=== PATIENT | male | born 1970 | race Caucasian/White ===

== ENCOUNTER 2020-03-11 12:43 | Emergency (ER) | payer OTHER, SELFPAY ==
--- NOTE | ~2020-03-11 | XR_ITS ---
XR shoulder RT min 2V DATE: 03/11/2020 13:03 INDICATION: Injury, right shoulder pain TECHNIQUE: 4 views COMPARISON: None FINDINGS: No fracture or dislocation, periosteal reaction or bone destruction. No abnormal soft tis erick calcification. Right cervical rib. IMPRESSION: No significant abnormality of right shoulder Right cervical rib Reviewed, dictated and finalized at location A.
[2020-03-11 12:45] VITALS: BP 137/82; PULSE 84; RESP 20; TEMP 36.7; O2SAT 99
--- NOTE | 2020-03-11 13:12 | ED.UPPEXIN ---
HPI - Extremity Injury (Upper) General Chief Complaint: Extremity Injury, Upper Stated Complaint: R shoulder pain Time Seen by Provider: 03/11/20 13:11 Source: patient Mode of arrival: ambulatory Limitations: no limitations History of Present Illness HPI narrative: Patient is a previously healthy 49-year-old gentleman who presents for evaluation of right shoulder pain. Pain is described as sharp in nature only with movement. Patient denies any radiation of the pain into his back, chest or down his right arm. Reports pain at the front portion of the top shoulder. Patient states pain began acutely yesterday when he was trying to help a friend move a piece of heavy furniture and he felt a popping sensation in his shoulder. No bulging noted. No numbness or weakness. Patient reports pain is mild. Patient still has good range of motion. He is not taking anything for pain. Patient is right-hand dominant. Review of Systems Review of Systems: Narrative: CONSTITUTIONAL: Denies fever CARDIOVASCULAR: Denies chest pain RESPIRATORY: Denies cough GASTROINTESTINAL: Denies abdominal pain SKIN: Denies rash MUSCULOSKELETAL: Denies back pain, reports mild right shoulder pain NEUROLOGIC: Denies headache PMFSH Past Medical History Medical History Orbital fracture Surgical History Surgical History H/O eye surgery Social History Social History (Updated 03/11/20 @ 13:29 by Yara Mederos MD) Smoking status: Never smoker Alcohol intake: current Alcohol use details: Social Substance use: never Gender identity (if verbalized by the patient): Male Exam Narrative: Exam Narrative: GENERAL: Awake, alert, conversant HEAD: Normocephalic, atraumatic. EYES: PERRLA and EOMI. ENT: Nares clear, no rhinorrhea or epistaxis. Mucous membranes moist. NECK: Supple. CHEST: No respiratory distress, breathing even and non labored HEART: Regular rate, sinus rhythm ABDOMEN:Non distended, non tender EXTREMITIES: Normal range of motion in the right shoulder. No tenderness overlying the clavicle, no squaring off of the shoulder. No bicep tenderness. Strength is 5 out of 5 in the upper extremity. Intact sensation median, ulnar, radial nerve distribution. Radial pulses 2+. Intact abduction and adduction. Abduction against resistance does elicit some pain. No decrease in strength. No pain with internal or external rotation. SKIN: Warm, dry, no rash. NEURO:No focal deficits. Alert and oriented x3 Course Vital Signs Vital signs: Vital Signs Temperature 36.7 C 03/11/20 12:45 Pulse Rate 84 03/11/20 12:45 Respiratory Rate 20 03/11/20 12:45 Blood Pressure 137/82 03/11/20 12:45 Pulse Oximetry 99 03/11/20 12:45 Temperature 36.7 C 03/11/20 12:45 Pulse Rate 84 03/11/20 12:45 Respiratory Rate 20 03/11/20 12:45 Blood Pressure 137/82 03/11/20 12:45 Pulse Oximetry 99 03/11/20 12:45 MDM - Extremity Injury (Upper) MDM Narrative Medical decision making narrative: Patient with acute right shoulder pain after moving a piece of heavy furniture. No neurovascular deficits at the time of assessment. Patient has good strength, no evidence of deformity or bruising. Imaging is negative for acute dislocation, fracture. Patient does have an extra cervical rib. He was provided a copy of his imaging report. Patient likely with mild shoulder strain/soft tissue injury. Patient advised to have close follow-up with his primary care provider or orthopedic physician although I do expect his symptoms to resolve with time. He was given lifting restrictions as long as he is symptomatic. Patient then discharged home. Differential Diagnosis Differential diagnosis: Likely other (Shoulder strain, dislocation, fracture) Imaging Data Radiologist's impression: ITS Impressions Shoulder X-Ray 03/11/20 13:04 IMPRESSION: No sign
[2020-03-11 13:36] VITALS: BP 132/78; PULSE 78; RESP 18; O2SAT 99
== END 2020-03-11 13:37 | disposition home or self-care (01) ==
PROVIDERS: Emergency Provider Emergency Medicine
DX: S46.911A Strain of unspecified muscle, fascia and tendon at shoulder and upper arm level, right arm, initial encounter (principal); X50.0XXA Overexertion from strenuous movement or load, initial encounter
CPT/HCPCS: 73030; 99283